=== PATIENT | female | born 1985 | race Caucasian/White ===

== ENCOUNTER → 2021-04-10 14:12 | Outpatient (CLI) | payer BC, SELFPAY ==
--- NOTE | ~2021-04-10 | XR_ITS ---
XR abdomen/kub 1V DATE: 04/10/2021 14:29 INDICATION: Bilateral kidney stones TECHNIQUE: AP projection, 2 views COMPARISON: None FINDINGS: Approximately 7.7 mm calcification overlying the lower pole of the right kidney. Approximat satnam 13.2 mm calcification overlying the mid left kidney. No visceromegaly is evident. The psoas shadows are intact. There is no evidence of bowel obstruction. Included skeletal structures are unremarkable other than osteoarthritis at the hip joints. IMPRESSION: Probable bilateral renal calcified calculi Reviewed, dictated and finalized at [facility]. Reviewed, dictated and finalized at location [facility].
== END ==
PROVIDERS: Visit Provider Urology
DX: N20.0 Calculus of kidney (principal)
CPT/HCPCS: 74018

== ENCOUNTER 2021-04-14 11:39 | Outpatient (CLI) | payer BC, SELFPAY ==
[2021-04-14 15:40] LABS: INR 0.9; Prothrombin Time 12.5 Seconds (11.1-14.7)
[2021-04-14 15:41] LABS: Partial Thromboplastin Time 29.7 SECONDS (22.3-36.8)
[2021-04-14 15:58] LABS: Beta HCG Quantitative < 2.39 mIU/ML
== END 2021-04-14 11:40 | disposition home or self-care (01) ==
PROVIDERS: PCP Family Medicine; Visit Provider Urology
DX: N20.0 Calculus of kidney (principal); Z01.818 Encounter for other preprocedural examination
CPT/HCPCS: 36415; 84702; 85610; 85730

== ENCOUNTER 2021-04-17 01:13 | Day surgery (SDC) | payer BC, SELFPAY ==
[2021-04-14 09:02] VITALS: BMI 44.6
[2021-04-17] VITALS (7 sets, daily range): BP systolic 93–123; BP diastolic 51–66; PULSE 67–87; RESP 16–21; TEMP 36.7–36.8; O2SAT 97–100
--- NOTE | ~2021-04-17 | XR_ITS ---
XR abdomen/kub 1V 04/17/2021 08:40 Indication: Renal stones Procedure: KUB Comparison: 04/10/2021 Findings: Bilateral renal stones, largest in the left kidney measuring 1.7 cm. Bowel gas pattern is n onobstructive. No acute osseous abnormality. Pelvic rings are intact. Moderate osteoarthritis of the hips. Impression: 1: Bilateral nephrolithiasis. Reviewed, dictated and finalized at location [facility]. Impression: 1: Bilateral nephrolithiasis.
--- NOTE | 2021-04-17 06:36 | WPDHPUPDATE1 ---
History and Physical Update Update Date/Time: 04/17/21 06:36 History and Physical has been reviewed, including an updated exam of the patient. There are NO changes in the patient's condition. Risks, benefits, and alternatives have been discussed and questions answered. Patient agrees to proceed with procedure.
--- NOTE | 2021-04-17 09:09 | P.PNAN_ITS ---
Anes - Initial Pre Proc Eval Procedure: Operation Date: 04/17/21 10:30 Proposed Procedures p Left Renal Extracorporeal Shock Wave Lithotripsy - James Gutierrez MD Date/Time: 04/17/21 09:09 Surgeon: James Gutierrez MD Pre Op Diagnosis: Left renal kidney stone Patient Data Age: 36 Gender: F Height: 1.7 m Weight: 129.27 kg Allergies Allergy/AdvReac Type Severity Reaction Status Date / Time No Known Allergies Allergy Unverified 04/14/21 09:03 Home Medications Medication Instructions Recorded Confirmed Type cholecalciferol (vitamin D3) 50 mcg PO DAILY 04/14/21 04/14/21 History ferrous sulfate 65 mg PO 04/14/21 History omeprazole [Prilosec] 20 mg PO DAILY 04/14/21 04/14/21 History Patient hx anesthesia problems: none Family hx anesthesia problems: none [facility] Past Medical History Medical History (Updated 04/17/21 @ 09:09 by Marv Walh MD) Morbid obesity Renal stones Surgical History Surgical History (Updated 04/17/21 @ 09:10 by Marv Wahl MD) History of gastric surgery Social History Social History Smoking status: Never smoker Alcohol intake: never Substance use: never Substance use type: does not use Living arrangements: with family Gender identity (if verbalized by the patient): Female Sexual Orientation (if Verbalized by the Patient): Straight or Heterosexual Spiritual care concerns: No Anes - Eval Final PreProcedure Day of Procedure 04/17/21 09:09 Patient weight: morbidly obese Heart: regular rate and rhythm Lungs: clear to auscultation Airway: Mallampati scale class II Neurological: alert and oriented Last oral intake: >/= 8 hours ASA classification: III Emergent: no Anesthetic plan: proceed Anesthesia type and monitoring: general LMA and standard monitoring Informed Consent: The patient's anesthetic plan and its attendant risks and benefits were discussed with the patient/family/POA. Questions were solicited and answers provided to the satisfaction of the patient/family/POA.
[2021-04-17] MEDS: LACTATED RINGERS 1,000 ML 30 ML IV CONT ×2 (09:37→11:30)
[2021-04-17] MEDS: ceFAZolin 3 GM/D5W 100 ML 100 ML IVPB (10:09)
--- NOTE | 2021-04-17 10:39 | W.PM.PROC2 ---
Procedure Note - Detailed Date of Procedure 04/17/21 Pre-op Diagnosis Left kidney stone Post-op Diagnosis same Procedure Performed Left ESWL Surgeon James Gutierrez MD Anesthesia general Description of Procedure The patient was brought to the operative suite where she was placed in the supine position on the Dornier lithotripsy table. The focal point of the lithotripter was placed at a 13mm left renal calculus. A total of 2500 shocks were delivered at a power setting of 4. There appeared to be good fragmentation of the stone. The patient tolerated the procedure well and was taken to the recovery room in good condition. Drains No Packing No Pathology none sent Complications No immediate complications Condition stable Disposition PACU
[2021-04-17] MEDS: ONDANSETRON INJ 4 MG/2 ML VIAL IV PUSH (11:17)
--- NOTE | 2021-04-17 11:32 | W.PM.PROC2 ---
Procedure Note - Detailed Date of Procedure 04/17/21 Pre-op Diagnosis Left kidney stone Post-op Diagnosis same Procedure Performed Left ESWL Surgeon James Gutierrez MD Anesthesia general Description of Procedure The patient was brought to the operative suite where she was placed in the supine position on the Dornier lithotripsy table. The focal point of the lithotripter was first placed at a 5-6mm left mid-pole calculus. A total of 1250 shocks were delivered at a power setting of 4 at that site. We then treated a similar size upper pole stone with an additional 1250 shocks. There appeared to be good fragmentation of the stones. The patient tolerated the procedure well and was taken to the recovery room in good condition. Drains No Packing No Pathology none sent Complications No immediate complications Condition stable Disposition PACU
== END 2021-04-17 12:20 | disposition home or self-care (01) ==
PROVIDERS: PCP Family Medicine; Visit Provider Urology
PROC: (CPT 50590; principal; 2021-04-17 10:30)
DX: N20.0 Calculus of kidney (principal); E66.01 Morbid (severe) obesity due to excess calories; Z68.42 Body mass index [BMI] 45.0-49.9, adult
CPT/HCPCS: 50590; 74018; J0690; J1100; J2250; J2405; J2704; J3010; J7120

== ENCOUNTER → 2021-04-30 16:11 | Outpatient (CLI) | payer BC, SELFPAY ==
--- NOTE | ~2021-04-30 | XR_ITS ---
EXAMINATION: XR abdomen/kub 1V DATE: 04/30/2021 16:52 INDICATION: Calculus of kidney. TECHNIQUE: A supine view of the abdomen on 2 radiographs was obtained. COMPARISON: Abdomen radiographs 04/10/2021, 04/17/2021 FINDINGS: There are no dilated loops of bowel. There is a 9 mm stone in right kidney lower pole. Ther e are phleboliths in right pelvis. IMPRESSION: 1. Right kidney stone. Reviewed, dictated and finalized at location [facility]. IMPRESSION: 1. Right kidney stone.
== END ==
PROVIDERS: Visit Provider Urology
DX: N20.0 Calculus of kidney (principal)
CPT/HCPCS: 74018

== ENCOUNTER 2022-04-07 17:40 | Emergency (ER) | payer BC, SELFPAY ==
[2022-04-07 17:42] VITALS: BP 156/58; PULSE 109; RESP 18; TEMP 37; O2SAT 100
--- NOTE | 2022-04-07 18:31 | ED.HA ---
HPI - Headache General Chief Complaint: Headache <Tova Perry APRN - Last Filed: 05/13/22 01:34> Stated Complaint: headache <Tova Perry APRN - Last Filed: 05/13/22 01:34> Time Seen by Provider: 04/07/22 18:23 <Tova Perry APRN - Last Filed: 05/13/22 01:34> Source: patient <Tova Perry APRN - Last Filed: 05/13/22 01:34> Mode of arrival: ambulatory <Tova Perry APRN - Last Filed: 05/13/22 01:34> Limitations: no limitations <Tova Perry APRN - Last Filed: 05/13/22 01:34> History of Present Illness HPI Narrative: 37-year-old female presents today with complaints of headache that started about 1 week ago. Patient states pain is intermittent in intensity. Pain is over the right frontal sinus and can radiate to the left. Patient recently seen at urgent care swabbed for COVID which was negative and told she had a URI. Symptoms started about 1 week ago. Patient states she had a sore throat, congestion, some dizziness, loss of taste. On Tuesday she was seen in urgent care and stated prior her COVID was negative. Patient has taken 2 COVID tests at home that were negative. Patient denies history of migraines. Patient denies sensitivity to light, nausea, vomiting. <Tova Perry APRN - Last Filed: 05/13/22 01:34> Related Data Home Medications: Home Medications Medication Instructions Recorded Confirmed cholecalciferol (vitamin D3) 50 50 mcg PO DAILY 04/14/21 04/14/21 mcg (2,000 unit) tablet ferrous sulfate 325 mg (65 mg 65 mg PO 04/14/21 iron) capsule,extended release omeprazole 20 mg capsule,delayed 20 mg PO DAILY 04/14/21 04/14/21 release <Tova Perry APRN - Last Filed: 05/13/22 01:34> Allergies/Adverse Reactions: Allergies Allergy/AdvReac Type Severity Reaction Status Date / Time NSAIDS (Non-Steroidal AdvReac Other Verified 04/07/22 17:56 Anti-Inflamma <Tova Perry APRN - Last Filed: 05/13/22 01:34> Review of Systems Review of Systems: CONSTITUTIONAL: Denies fever, chills, or sweats. EYES: Denies visual changes, redness, or discharge. ENT: Congestion. Denies rhinorrhea, sore throat, or otalgia. CARDIOVASCULAR: Denies chest pain, palpitations, or edema. RESPIRATORY: Denies cough or dyspnea. GASTROINTESTINAL: Denies abdominal pain, nausea, vomiting, or diarrhea. GENITOURINARY: Denies dysuria or hematuria. SKIN: Denies rash or itching. MUSCULOSKELETAL: Denies back pain, joint pain, or myalgia. NEUROLOGIC: Headache. Denies numbness, dizziness, or weakness. PSYCHIATRIC: Denies anxiety or depression. <Tova Perry APRN - Last Filed: 05/13/22 01:34> PMFSH Past Medical History Medical History: Medical History (Updated 04/08/22 @ 00:00 by Marilee Tee) Morbid obesity Renal stones <Tova Perry [employer]OCK [employer]KER - Last Filed: 05/13/22 01:34> Surgical History Surgical History: Surgical History (Updated 04/17/21 @ 09:10 by Marv Wahl MD) History of gastric surgery <Tova Perry APRN - Last Filed: 05/13/22 01:34> Social History Social History: Social History Smoking status: Never smoker Alcohol intake: never Substance use: never Substance use type: does not use Gender identity (if verbalized by the patient): Female Sexual Orientation (if Verbalized by the Patient): Straight or Heterosexual Spiritual care concerns: No <Tova Perry APRN - Last Filed: 05/13/22 01:34> Exam Narrative: GENERAL: Well-appearing, well-nourished, and in no acute distress. HEAD: Normocephalic, atraumatic. EYES: PERRLA and EOMI. ENT: Nares clear, no rhinorrhea or epistaxis. Mucous membranes moist. Oropharynx without tonsillar hypertrophy exudate or other lesions. Bilateral TMs pearly dee nonbulging. Right frontal sinus tenderness with palpation. NECK: Supple. No adenopathy or masses. No carotid bruits or JVD CHEST: Clear to auscultatio
[2022-04-07 18:43] LABS: Basophils Absolute Auto 0.1 K/mm3 (0.0-0.1); Basophils Percent Auto 0.6 % (0.2-1.2); Eosinophils Absolute Auto 0.1 K/mm3 (0-0.3); Eosinophils Percent Auto 0.8 % (0-4.4); Hematocrit 35.1 % (37.0-47.0); Hemoglobin 10.2 g/dL (12.0-15.0); Immature Granulocyte Absolute 0.04 K/mm3 (0.00-0.031); Immature Granulocyte Percent A 0.5 % (0-0.5); Immature Platelet Fraction Pct 5.7 % (0.9-11.2); Lymphocytes Absolute Auto 1.52 K/mm3 (0.9-3.2); Lymphocytes Percent Auto 19.5 % (18.3-44.2); Mean Corpuscular HGB Conc 29.1 g/dl (32-36); Mean Corpuscular Volume 72.2 fl (80-100); Mean Platelet Volume 11.5 fl (7.4-10.4); Monocytes Absolute Auto 0.4 K/mm3 (0.1-0.6); Monocytes Percent Auto 5.4 % (2.6-8.5); Neutrophils Absolute Auto 5.7 K/mm3 (1.3-6.7); Neutrophils Percent Auto 73.2 % (45.5-73.1); Platelet Count Result 294 k/mm3 (150-375); Red Blood Count 4.86 M/mm3 (4.2-5.4); Red Cell Distribution Width 17.6 % (11.5-14.5); White Blood Count 7.8 K/mm3 (4.5-10.0)
[2022-04-07] MEDS: SODIUM CHLORIDE 0.9% IV 1,000 ML 999 ML IV CONT (18:48)
[2022-04-07] MEDS: KETOROLAC 30 MG/ML VIAL (*BKC) IV PUSH (18:49)
[2022-04-07] MEDS: METOCLOPRAMIDE HCL INJ 10 MG/2 ML VIAL IV PUSH (18:49)
[2022-04-07] MEDS: diphenhydrAMINE HCl INJ 50 MG/ML VIAL 25 MG IV PUSH (18:49)
[2022-04-07 18:51] LABS: Alanine Aminotransferase 17 U/L (6-35); Albumin Level 4.2 g/dL (3.5-5.1); Alkaline Phosphatase 65 U/L (38-126); Anion Gap 6 mmol/L (8-16); Aspartate Amino Transferase 15 U/L (14-36); Bilirubin,Total 0.4 mg/dL (0.2-1.3); Blood Urea Nitrogen 10 mg/dL (7-17); Calcium 8.8 mg/dL (8.4-10.2); Carbon Dioxide 26 mmol/L (22-30); Chloride 105 mmol/L (98-107); Estimated CRCL calculation 133 ml/min; Estimated Glomerular Filt Rate > 60; Glucose 107 mg/dL (65-110); Potassium 3.9 mmol/L (3.4-5.0); Sodium 137 mmol/L (137-145)
[2022-04-07 19:24] LABS: SARS-CoV-2 RNA PCR Negative
[2022-04-07 19:30] VITALS: BP 106/57; PULSE 100; RESP 16; TEMP 37.7; O2SAT 100
[2022-04-07 19:31] LABS: Hypochromasia 1+ (NORMAL); Platelet Estimate Adequate (Adequate)
[2022-04-07 19:32] LABS: Anisocytosis 2+ (NORMAL)
[2022-04-07] MEDS: ACETAMINOPHEN 325 MG TABLET 650 MG PO (20:09)
[2022-04-07 20:12] VITALS: BP 106/51; PULSE 88; RESP 16; O2SAT 98
== END 2022-04-07 20:13 | disposition home or self-care (01) ==
PROVIDERS: Emergency Provider Nurse Practitioner Family
DX: B34.9 Viral infection, unspecified (principal); Z20.822 Contact with and (suspected) exposure to COVID-19
CPT/HCPCS: 36415; 80053; 85025; 85055; 96361; 96374; 96375; 99284; A9270; C9803; J1200; J1885; J2765; J7030; U0003; U0005

== ENCOUNTER 2023-08-28 17:41 | Emergency (ER) | payer BC, SELFPAY ==
--- NOTE | ~2023-08-28 | CT_ITS ---
EXAMINATION: CT abdomen pelvis wo con DATE: 08/28/2023 19:07 INDICATION: back pain, hematuria, hx stones TECHNIQUE: Computed tomography (CT) of the abdomen and pelvis was performed without intravenous contr ast. Automated exposure control and iterative reconstruction technique were employed. The dose-length product was 1653.68 mGy-cm. COMPARISON: None. FINDINGS: Lower thorax: Unremarkable Liver: Normal. Biliary/Gallbladder: Gallbladder is absent. No bile duct dilation. Pancreas: No mass or duct dilation. Spleen: Normal. Adrenals:No mass. Kidneys: No suspicious mass, obstructing stone, or hydronephrosis. 14 mm nonobstructing calculus in t he right renal pelvis. GI tract: Uncomplicated appearing small bowel anastomosis. Surgical changes at the GE junction. No sm all or large bowel dilation. Normal appendix. Diverticulosis without diverticulitis. Mesentery/Peritoneum: No ascites, mass, or free air. Retroperitoneum: No mass. Pelvis: Pelvic organs are within normal limits. Soft Tissues: Soft tissues and body wall unremarkable. Bones: No acute osseous finding. IMPRESSION: 14 mm nonobstructing stone in the right renal pelvis. No CT evidence of obstructive uropathy. No acute abdominopelvic process detected. Reviewed, dictated and finalized at location [facility]. OR [employer] ENG[employer] IMPRESSION: 14 mm nonobstructing stone in the right renal pelvis. No CT evidence of obstruc tive uropathy. No acute abdominopelvic process detected.
[2023-08-28 17:48] VITALS: BP 145/70; PULSE 84; RESP 15; TEMP 36.7; O2SAT 100
--- NOTE | 2023-08-28 18:20 | ED.FEMALEGU ---
HPI - Female Genitourinary General Chief complaint: Urogenital-Female Stated complaint: urinating blood, back pain Time Seen by Provider: 08/28/23 17:59 Source: patient Mode of arrival: ambulatory Limitations: no limitations History of Present Illness HPI Narrative: Patient is a 38-year-old female, with PMH of recurrent kidney stones, presents to ED with report of hematuria and low back pain. Patient reports she developed hematuria yesterday. It became worse today and notes her urine looked almost completely red. She began having some pain throughout her lower back, worse on the left side today. She does report intermittent discomfort in her left lower quadrant as well. Patient reports last stone was earlier this year. She sees Dr. Gutierrez. Denies dysuria, N/V, fevers, vaginal bleeding. Related Data Home Medications Medication Instructions Recorded Confirmed cholecalciferol (vitamin D3) 50 50 mcg PO DAILY 04/14/21 04/14/21 mcg (2,000 unit) tablet ferrous sulfate 325 mg (65 mg 65 mg PO 04/14/21 iron) capsule,extended release omeprazole 20 mg capsule,delayed 20 mg PO DAILY 04/14/21 04/14/21 release Allergies Allergy/AdvReac Type Severity Reaction Status Date / Time NSAIDS (Non-Steroidal AdvReac Other Verified 04/07/22 17:56 Anti-Inflamma Review of Systems Review of Systems: CONSTITUTIONAL: Denies fever, chills, or sweats. CARDIOVASCULAR: Denies chest pain. RESPIRATORY: Denies dyspnea. GASTROINTESTINAL: See HPI. GENITOURINARY: See HPI. SKIN: Denies rash or itching. MUSCULOSKELETAL: See HPI. All systems reviewed & are unremarkable except as noted in HPI and below PMFSH Past Medical History Medical History Morbid obesity Renal stones Surgical History Surgical History History of gastric surgery Social History Social History Smoking status: Never smoker Alcohol intake: never Substance use: never Substance use type: does not use Living arrangements: with family Gender identity (if verbalized by the patient): Female Sexual Orientation (if Verbalized by the Patient): Straight or Heterosexual Spiritual care concerns: No Exam Narrative: GENERAL: Well appearing, morbidly obese with BMI of 47.0, non-toxic, in no acute distress. HEAD: Normocephalic, atraumatic. NECK: Supple. No adenopathy, no masses. RESPIRATORY: Airway patent, respirations nonlabored. Clear to auscultation bilaterally, no rales, rhonchi, wheezing. CARDIOVASCULAR: Regular rate and rhythm without murmurs, rubs, or gallops. Peripheral pulses 2+ and equal bilaterally. ABDOMINAL: Soft, no significant tenderness throughout lower abdomen, nondistended, no hepatosplenomegaly. Normoactive BS. No significant CVA tenderness to percussion. MUSCULOSKELETAL: Moves all extremities. Strength/ROM intact without gross deformities. Mild TTP over L mid back. SKIN: Warm, dry, normal color. No rashes. NEURO: A&O X3. Speech clear. Cranial nerves II-XII grossly intact. Steady gait. No ataxic movements. PSYCHIATRIC: Appropriate mood and affect. Normal interaction. Course Vital Signs Vital signs: Vital Signs Temperature 98.0 F 08/28/23 17:48 Pulse Rate 84 08/28/23 17:48 Respiratory Rate 15 08/28/23 17:48 Blood Pressure 145/70 H 08/28/23 17:48 Pulse Oximetry 100 08/28/23 17:48 Temperature 98.0 F 08/28/23 17:48 Pulse Rate 79 08/28/23 20:03 Respiratory Rate 15 08/28/23 20:03 Blood Pressure 117/67 08/28/23 20:03 Pulse Oximetry 100 08/28/23 20:03 MDM - Female Genitourinary MDM Narrative Medical decision making narrative: Patient presented to ED with hematuria, left lower back pain, history of kidney stones. Stable upon arrival. In no acute distress. No significant pain. She did not want anything for pa
[2023-08-28 18:32] LABS: Appearance Urine Cloudy (Clear); Bacteria Urine None Seen /hpf; Bilirubin Urine Negative (Negative); Blood Urine 3+ (Negative); Color Urine Yellow (Yellow); Glucose Urine UA Negative (Negative); Ketones Urine Negative (Negative); Leukocyte Esterase Ur Trace LEU/UL (Negative); Nitrate Urine Negative (Negative); Non Pathogenic Casts 0-2; Protein Urine 1+ mg/dL (Negative); RBC Urine >100 /hpf (0-2); Squamous Epithelial Cell Urine Few /hpf (Few); WBC Urine 0-5 /hpf; pH Urine 5.5 (5.0-9.0)
[2023-08-28 18:55] LABS: Add Urine Microscopic? YES
[2023-08-28 19:07] LABS: Basophils Percent Auto 0.5 % (0.2-1.2); Eosinophils Absolute Auto 0.1 K/mm3 (0-0.3); Eosinophils Percent Auto 1.1 % (0-4.4); Hematocrit 39.1 % (37.0-47.0); Hemoglobin 12.4 g/dL (12.0-15.0); Immature Granulocyte Absolute 0.02 K/mm3 (0.00-0.031); Immature Granulocyte Percent A 0.2 % (0-0.5); Lymphocytes Absolute Auto 1.31 K/mm3 (0.9-3.2); Lymphocytes Percent Auto 15.6 % (18.3-44.2); Mean Corpuscular HGB Conc 31.7 g/dl (32-36); Mean Corpuscular Hemoglobin 27.4 pg (26-34); Mean Corpuscular Volume 86.5 fl (80-100); Mean Platelet Volume 11.1 fl (7.4-10.4); Monocytes Absolute Auto 0.4 K/mm3 (0.1-0.6); Monocytes Percent Auto 5.2 % (2.6-8.5); Neutrophils Absolute Auto 6.5 K/mm3 (1.3-6.7); Neutrophils Percent Auto 77.4 % (45.5-73.1); Platelet Count Result 232 k/mm3 (150-375); Red Blood Count 4.52 M/mm3 (4.2-5.4); White Blood Count 8.4 K/mm3 (4.5-10.0)
[2023-08-28 19:17] LABS: Potassium 3.7 mmol/L (3.4-5.0)
[2023-08-28 19:25] LABS: Alanine Aminotransferase 20 U/L (6-35); Albumin Level 3.9 g/dL (3.5-5.1); Alkaline Phosphatase 63 U/L (38-126); Anion Gap 6 mmol/L (8-16); Aspartate Amino Transferase 20 U/L (14-36); Bilirubin,Total 0.5 mg/dL (0.2-1.3); Blood Urea Nitrogen 13 mg/dL (7-17); Calcium 9.1 mg/dL (8.4-10.2); Carbon Dioxide 25 mmol/L (22-30); Chloride 109 mmol/L (98-107); Estimated CRCL calculation 153 ml/min; Estimated Glomerular Filt Rate > 60; Glucose 99 mg/dL (65-110); Sodium 140 mmol/L (137-145)
[2023-08-28] MEDS: SODIUM CHLORIDE 0.9% IV 1,000 ML 999 ML IV CONT (19:28)
[2023-08-28 20:03] VITALS: BP 117/67; PULSE 79; RESP 15; O2SAT 100
[2023-08-28 21:55] VITALS: BP 105/77; PULSE 83; RESP 16; O2SAT 98
== END 2023-08-28 21:55 | disposition home or self-care (01) ==
PROVIDERS: Student in an Organized Health Care Education/Training Program; Emergency Provider Physician Assistant; PCP Family Medicine
DX: N20.0 Calculus of kidney (principal); R31.0 Gross hematuria; Z87.442 Personal history of urinary calculi; E66.01 Morbid (severe) obesity due to excess calories; Z68.42 Body mass index [BMI] 45.0-49.9, adult; Z98.84 Bariatric surgery status
CPT/HCPCS: 36415; 74176; 80053; 81001; 81025; 85025; 87077; 87086; 87088; 96360; 96361; 99284; J7030

== ENCOUNTER 2023-10-08 01:38 | Observation (INO) | payer BC, SELFPAY ==
[2023-10-08] VITALS (9 sets, daily range): BP systolic 114–141; BP diastolic 52–86; PULSE 65–95; RESP 18–22; TEMP 36–36.6; O2SAT 98–100; BMI 50.2
--- NOTE | ~2023-10-08 | XR_ITS ---
XR stent kub - surgery DATE: 10/08/2023 08:37 INDICATION: Right stent placement TECHNIQUE: 25.8 seconds fluoroscopy time 19.61 mGy COMPARISON: 08/28/2023 CT abdomen pelvis. FINDINGS: No stricture or filling defect of the right ureter is detected. There is placement of a right internal urinary stent, proximal pigtail overlying the right renal pelv is, the distal pigtail overlying the right base of the urinary bladder IMPRESSION: Right internal urinary right internal urinary stent placement Reviewed, dictated and finalized at location A. NE FIREMAN
--- NOTE | 2023-10-08 01:46 | ADMGEN ---
This patient, Samanta Braga, was admitted to Medical Room 349-01. Patient/family oriented to hospital policies and general routines including ID bracelet, bed and alarms, visiting hours, pain management, procedures, bathroom and other care routines, personal items, smoking policy, room service/diet, and visiting hours. Information on how to activate the Rapid Response Team has been discussed. Patient/Family are encouraged to report perceived risks to care and to ask questions if they do not understand what they are told or what they should do.
[2023-10-08] MEDS: HYDROmorphone HCL INJ (*CRX) 1 MG/ML SYR IV PUSH (02:24)
[2023-10-08] MEDS: SODIUM CHLORIDE 0.9% IV 1,000 ML 100 ML IV CONT (02:25)
[2023-10-08] MEDS: ONDANSETRON INJ 4 MG/2 ML VIAL IV PUSH ×3 (02:29→12:08)
--- NOTE | 2023-10-08 07:40 | P.PNAN_ITS ---
Anes - Eval Pre Procedure Procedure: Operation Date: 10/08/23 08:00 Proposed Procedures p Cystoscopy, Right Ureteral Stent Placement - Piero Foster MD Date/Time: 10/08/23 07:40 Surgeon: Cristian Preop Diagnosis: renal stone Pre Op Diagnosis: obstructing kidney stone Patient Data Age: 38 Gender: F Height: 1.7 m Weight: 145.5 kg Last Vital Signs Temp 97.0 F L 10/08/23 02:48 Pulse 73 10/08/23 02:48 Resp 20 10/08/23 02:48 BP 141/59 H 10/08/23 02:48 Pulse Ox 98 10/08/23 02:48 O2 Del Method Room Air 10/08/23 02:13 Allergies Allergy/AdvReac Type Severity Reaction Status Date / Time NSAIDS (Non-Steroidal AdvReac Other Verified 04/07/22 17:56 Anti-Inflamma Home Medications Medication Instructions Recorded Confirmed Type omeprazole 20 mg capsule,delayed 20 mg PO DAILY PRN Gastric Reflux 04/14/21 10/08/23 History release : patient denies (h/o btl) Patient hx anesthesia problems: post op nausea/vomiting Family hx anesthesia problems: none Results Review: All pre-operative results and documents have been reviewed as part of the pre- operative evaluation. [facility] Past Medical History Medical History (Updated 10/08/23 @ 07:38 by Liv Garcia CRNA) Anemia Asthma Chronic GERD Morbid obesity PONV (postoperative nausea and vomiting) Renal stones Surgical History Surgical History (Updated 10/08/23 @ 07:36 by Liv Garcia CRNA) H/O sinus surgery H/O tubal ligation History of gastric surgery Hx of cholecystectomy Previous section Family History Family History Father Heart attack Social History Social History Smoking status: Never smoker Alcohol intake: never Substance use: never Substance use type: does not use Do You Feel Safe in your Home?: Yes Lack of Transportation: No Lack of Food: Never True Current Housing: I Have Housing Concerned About Future Housing: No Difficulty Paying Gas/Electric Bills: No Difficulty Paying for Meds: No Currently Unemployed: No Education: High School Diploma/GED Difficulty w/ Childcare or Family Care: No Living arrangements: with family Gender identity (if verbalized by the patient): Female Sexual Orientation (if Verbalized by the Patient): Straight or Heterosexual Spiritual care concerns: No Exam Day of Procedure 10/08/23 07:40 Patient weight: morbidly obese Airway: Mallampati scale class II
[2023-10-08] MEDS: ceFAZolin 3 GM/D5W 100 ML 100 ML IVPB (08:14)
[2023-10-08] MEDS: LACTATED RINGERS 1,000 ML 30 ML IV CONT (08:15)
--- NOTE | 2023-10-08 08:16 | WPDANESEPPF ---
Anes - Initial Pre Proc Eval Procedure: Operation Date: 10/08/23 08:00 Proposed Procedures p Cystoscopy, Right Ureteral Stent Placement - Piero Foster MD Date/Time: 10/08/23 08:16 Surgeon: Marycarmen Roberts DO Pre Op Diagnosis: obstructing kidney stone Patient Data Age: 38 Gender: F Height: 1.7 m Weight: 145.5 kg Last Vital Signs Temp 36.1 C L 10/08/23 06:00 Pulse 80 10/08/23 06:00 Resp 20 10/08/23 06:00 BP 118/52 L 10/08/23 06:00 Pulse Ox 98 10/08/23 06:00 O2 Del Method Room Air 10/08/23 02:13 Allergies Allergy/AdvReac Type Severity Reaction Status Date / Time NSAIDS (Non-Steroidal AdvReac Other Verified 04/07/22 17:56 Anti-Inflamma Home Medications Medication Instructions Recorded Confirmed Type omeprazole 20 mg capsule,delayed 20 mg PO DAILY PRN Gastric Reflux 04/14/21 10/08/23 History release : patient denies (h/o btl) Patient hx anesthesia problems: post op nausea/vomiting Family hx anesthesia problems: none Results Review: All pre-operative results and documents have been reviewed as part of the pre-operative evaluation. [facility] Past Medical History Medical History Anemia Asthma Chronic GERD Morbid obesity PONV (postoperative nausea and vomiting) Renal stones Surgical History Surgical History H/O sinus surgery H/O tubal ligation History of gastric surgery Hx of cholecystectomy Previous section Family History Family History Father Heart attack Social History Social History Smoking status: Never smoker Alcohol intake: never Substance use: never Substance use type: does not use Do You Feel Safe in your Home?: Yes Lack of Transportation: No Lack of Food: Never True Current Housing: I Have Housing Concerned About Future Housing: No Difficulty Paying Gas/Electric Bills: No Difficulty Paying for Meds: No Currently Unemployed: No Education: High School Diploma/GED Difficulty w/ Childcare or Family Care: No Living arrangements: with family Gender identity (if verbalized by the patient): Female Sexual Orientation (if Verbalized by the Patient): Straight or Heterosexual Spiritual care concerns: No Anes - Eval Final PreProcedure Day of Procedure 10/08/23 08:16 Patient weight: morbidly obese Heart: regular rate and rhythm Lungs: clear to auscultation Airway: Mallampati scale class II Neurological: alert and oriented Last oral intake: >/= 8 hours ASA classification: III Emergent: no Anesthetic plan: proceed Anesthesia type and monitoring: general LMA and standard monitoring Results Review: All pre-operative results and documents have been reviewed as part of the pre-operative evaluation. Informed Consent: The patient's anesthetic plan and its attendant risks and benefits were discussed with the patient/family/POA. Questions were solicited and answers provided to the satisfaction of the patient/family/POA.
--- NOTE | 2023-10-08 08:17 | WPDURCON ---
Assessment and Plan Assessment and plan (1) Renal calculus, right: Code(s): N20.0 - Calculus of kidney Status: Acute Assessment and Plan: large stone in the right renal pelvis--pain control reason for admission likely intermittent obstruction with minimal hydronephrosis plan for right ureteral stent (2) Renal colic on right side: Code(s): N23 - Unspecified renal colic Status: Acute Assessment and Plan: stent and pain control Urology Consult Note HPI Date Seen: 10/08/23 Requesting Physician: Marycarmen Roberts DO Primary Care Provider: Nabeel RodriguezMD Consult Narrative Narrative: Samanta Braga is a 38 year old female with right flank pain and right 1cm stone. No fevers, admitted for pain control. Review of Systems Review of Systems: past ESWL Constitutional: Comments: normal affect PMFSH Past Medical History Medical History (Updated 10/08/23 @ 08:24 by Piero Foster MD) Anemia Asthma Chronic GERD Morbid obesity PONV (postoperative nausea and vomiting) Renal calculus, right Renal stones Surgical History Surgical History H/O sinus surgery H/O tubal ligation History of gastric surgery Hx of cholecystectomy Previous section Family History Family History Father Heart attack Social History Social History Smoking status: Never smoker Alcohol intake: never Substance use: never Substance use type: does not use Do You Feel Safe in your Home?: Yes Lack of Transportation: No Lack of Food: Never True Current Housing: I Have Housing Concerned About Future Housing: No Difficulty Paying Gas/Electric Bills: No Difficulty Paying for Meds: No Currently Unemployed: No Education: High School Diploma/GED Difficulty w/ Childcare or Family Care: No Living arrangements: with family Gender identity (if verbalized by the patient): Female Sexual Orientation (if Verbalized by the Patient): Straight or Heterosexual Spiritual care concerns: No Meds Home Medications and Allergies Home Medications Medication Instructions Recorded Confirmed Type omeprazole 20 mg capsule,delayed 20 mg PO DAILY PRN Gastric Reflux 04/14/21 10/08/23 History release Allergies Allergy/AdvReac Type Severity Reaction Status Date / Time NSAIDS (Non-Steroidal AdvReac Other Verified 04/07/22 17:56 Anti-Inflamma Vital Signs Vital Signs - 24 hr 10/08/23 02:13 10/08/23 02:48 10/08/23 06:00 Temperature 36.1 C L 36.1 C L Pulse Rate 73 80 Respiratory Rate 20 20 Blood Pressure 141/59 H 118/52 L Pulse Oximetry 98 98 Oxygen Delivery Room Air Exam Narrative: right sided pain--CVA Const: General: cooperative, healthy appearing, alert and awake HENMT: Head: normal to inspection Eyes: General: appearance normal, both eyes and all related structures Chest: Chest palpation & inspection: normal inspection of the chest Resp: Effort & Inspection: normal respiratory effort : General: Yes bimanual renal exam normal bilaterally Back/Spine/Pelvis: Back: CVA tenderness (right)
--- NOTE | 2023-10-08 08:39 | W.PM.PROC2 ---
Procedure Note - Detailed Date of Procedure 10/08/23 Pre-op Diagnosis obstructing kidney stone right renal pelvis Post-op Diagnosis Same Procedure Performed cystoscopy and right ureteral stent Surgeon Piero Foster MD Guidance Adviser none Anesthesia General Indications right renal colic Description of Procedure Patient consented for procedure and was brought back to the operating room. A LMA general anesthesia was achieved. She was positioned lithotomy. Her pelvis and vagina were dressed and draped in normal sterile fashion. Cystoscopy was completed and a right retrograde study was completed illustrating a normal ureter with a stone at the right UPJ with mild hydronephrosis. A 4.8 Turkmen by variable length stent was placed. A good curl was visualized past and around the stone with a good curl in the bladder. The bladder was normal on cystoscopy. The bladder was emptied. She was transferred to the recovery area in stable condition. Implants 4.8 Turkmen double J stent on right Estimated Blood Loss 0 Pathology None sent Complications No immediate complications Condition Stable Disposition PACU
[2023-10-08] MEDS: LIDOCAINE HCL 2% GEL UROJET 10 ML PKG MUCOUS MEM (08:44)
--- NOTE | 2023-10-08 11:39 | PM.SD2 ---
Same Day Admit/Disch: HPI History of Present Illness Chief complaint: obstructing kidney stone Narrative: Samanta Braga is a 38 year old female with a history of kidney stones that was transferred to [facility] from [place] due to a 10 mm right ureteral stone. Patient stated that she does have history of a lithotripsy. Patient arrived to [facility] and urology was consulted. Patient underwent cystoscopy and right ureteral stent placement on 10/08/2023. After procedure patients pain was much better controlled. She tolerated a diet after her procedure. She was cleared by Urology to discharge. Recommended follow-up in their office. [facility] Past Medical History Medical History Anemia Asthma Chronic GERD Morbid obesity PONV (postoperative nausea and vomiting) Renal calculus, right Renal stones Surgical History Surgical History H/O sinus surgery H/O tubal ligation History of gastric surgery Hx of cholecystectomy Previous section Family History Family History Father Heart attack Social History Social History Smoking status: Never smoker Alcohol intake: never Substance use: never Substance use type: does not use Do You Feel Safe in your Home?: Yes Lack of Transportation: No Lack of Food: Never True Current Housing: I Have Housing Concerned About Future Housing: No Difficulty Paying Gas/Electric Bills: No Difficulty Paying for Meds: No Currently Unemployed: No Education: High School Diploma/GED Difficulty w/ Childcare or Family Care: No Living arrangements: with family Gender identity (if verbalized by the patient): Female Sexual Orientation (if Verbalized by the Patient): Straight or Heterosexual Spiritual care concerns: No Same Day Admit/Disch: Med Pre-admit Medications Home Medications Medication Instructions Recorded Confirmed Type omeprazole 20 mg capsule,delayed 20 mg PO DAILY PRN Gastric Reflux 04/14/21 10/08/23 History release Exam Narrative: GENERAL: Comfortable, no acute distress HENMT: moist mucous membranes EYES: EOM intact b/l NECK: no lymphadenopathy RESPIRATORY: clear to auscultation CARDIO: RRR GI: soft, nontender, bowel sounds present SKIN: no rashes EXTREMITIES: no edema, redness or tenderness DS: Summary Hospital Course Hospital Course: Samanta Braga is a 38 year old female with a history of kidney stones that was transferred to [facility] from [place] due to a 10 mm right ureteral stone. Patient stated that she does have history of a lithotripsy. Patient arrived to [facility] and urology was consulted. Patient underwent cystoscopy and right ureteral stent placement on 10/08/2023. After procedure patients pain was much better controlled. She tolerated a diet after her procedure. She was cleared by Urology to discharge. Recommended follow-up in their office. Time Spent with Patient Time attestation: Total time spent providing and/or coordinating discharge services: DS: Admitting Diagnosis Discharge Date 10/11/23 Admitting Diagnosis kidney stone DS: Discharge Diagnosis Discharge Diagnosis (1) Renal colic on right side: Code(s): N23 - Unspecified renal colic Status: Acute Discharge Plan Discharge Attending physician on discharge: Lex Louise Consulting providers: Piero Foster Discharging Clinician: Umu Velasquez Patient Disposition: Home, Self-Care Activity: as tolerated Diet: regular Discharge Instructions: Discharge instructions: Return to the emergency department if: Nausea vomiting, fever, difficulty urinating, blood in the urine, severe pain May use Tylenol, ibuprofen or Advil for increased pain.
== END 2023-10-08 14:48 | disposition home or self-care (01) ==
PROVIDERS: Urology; Admitting Provider Internal Medicine; PCP Family Medicine; Visit Provider Internal Medicine
PROC: (CPT 52352; principal; 2023-10-08 08:00)
DX: N13.2 Hydronephrosis with renal and ureteral calculous obstruction (principal); N23 Unspecified renal colic; K21.9 Gastro-esophageal reflux disease without esophagitis; D64.9 Anemia, unspecified; J45.909 Unspecified asthma, uncomplicated; E66.01 Morbid (severe) obesity due to excess calories; Z68.43 Body mass index [BMI] 50.0-59.9, adult; Z98.84 Bariatric surgery status
CPT/HCPCS: 52332; 96374; C1758; C2617; G0378; J0690; J1170; J2250; J2405; J3010; J7030; J7120; Q9966

== ENCOUNTER 2023-11-03 16:48 | Outpatient (CLI) | payer BC, SELFPAY ==
[2023-11-03 17:04] LABS: Hematocrit 36.1 % (35.0-49.0); Hemoglobin 11.4 g/dL (12.0-15.0)
[2023-11-03 17:19] LABS: INR 0.9; Partial Thromboplastin Time 28.7 SEC (23.90-30.70); Prothrombin Time 10.3 Seconds (9.50-12.10)
== END 2023-11-03 16:49 | disposition home or self-care (01) ==
PROVIDERS: Urology; PCP Family Medicine; Visit Provider Anesthesiology
DX: Z01.818 Encounter for other preprocedural examination (principal); D64.9 Anemia, unspecified; N20.0 Calculus of kidney
CPT/HCPCS: 36415; 85014; 85018; 85610; 85730; 87077; 87086; 87088

== ENCOUNTER 2023-11-11 01:50 | Day surgery (SDC) | payer BC, SELFPAY ==
[2023-11-01 11:35] VITALS: BMI 48.6
--- NOTE | 2023-11-01 11:41 | PC.NURSE ---
Report to the Outpatient Waiting Room, entrance under the green pavilion located off [facility], at time 0600 on date 11/11/23. Planned Procedure Time: 0730. Time changes happen often and if your time is changed the preop area will call you the afternoon before. - You and your visitor will be asked to self-screen and do not enter if you have any COVID symptoms. - A mask is optional within the hospital at this time. Patients may have clear liquids (water, carbonated beverages, clear teas, apple juice) until 3 hours prior to surgery with a maximum of 20 ounces. - No food from midnight until time of surgery Take the following medications with a SIP of water the morning of surgery: PAIN PILL IF NEEDED DO NOT STOP ANY OF YOUR OTHER PRESCRIPTION MEDICATIONS PRIOR TO SURGERY ?EXCEPT THE FOLLOWING Medications to discontinue per physician: N/A Date to take last dose: N/A Please no make-up, nail georgian, hairspray, perfume, deodorant, or body powder the day of surgery. No jewelry (including any body piercings) or valuables the day of surgery, leave them at home. Please take a shower or bath the night before, or the morning of, surgery with an antibacterial soap. Wear comfortable, loose fitting clothing. - Jewelry must be removed prior to entering the operating room. Rings and piercings that are not removed may be cut off. - The hospital will not accept responsibility for valuables. - Please leave all valuables, including medications, at home the day of surgery. If you are going home after surgery, a licensed route driver must drive you home. - NO public transportation without another adult if you receive anesthesia. - We recommend that an adult stay with you for 24 hours following discharge. - We also recommend that you do not drive, make important decision, drink alcoholic beverages, or take any drugs that were not prescribed by your health care provider for at least 24 hours after your discharge time. Follow any additional instructions given to you from your surgeon. If you or anyone in your household have experienced Covid symptoms in the past week, please notify your surgeon or the nurse liaison at the phone number below for possible testing. Telephone instructions given to PT - BUCKY MULLEN and asked if any additional questions and then verbalized understanding. Patient advised to call surgeon office or pre surgery nurse liaison [phone] if any additional questions.
--- NOTE | 2023-11-03 07:19 | P.HP_ITS ---
History of Present Illness History of Present Illness Consent: Risks, benefits, and alternatives have been discussed and questions answered. Patient agrees to proceed with procedure. Chief complaint: sharon kidney stones Narrative: Samanta Braga is a 38 year old female who presented on September 2019 for with a 1 cm right renal pelvic stone. Ureteral stent was placed and she now presents for definitive right ESWL. She is aware the risk including, but not limited to, adverse cardiopulmonary events, hematuria, perinephric hematoma and need for additional procedures. Review of Systems Cardiovascular: Cardiovascular: Denies chest pain, Denies lightheadedness, Denies palpitations and Denies dyspnea Respiratory: Respiratory: Denies dyspnea Gastrointestinal: Gastrointestinal: Denies diarrhea, Denies nausea and Denies vomiting Genitourinary: Genitourinary: Denies hematuria and Denies dysuria Endocrine: Endocrine: Denies palpitations PMFSH Past Medical History Medical History Anemia Asthma Chronic GERD Morbid obesity PONV (postoperative nausea and vomiting) Renal calculus, right Renal stones Surgical History Surgical History H/O sinus surgery H/O tubal ligation History of gastric surgery Hx of cholecystectomy Previous section Family History Family History Father Heart attack Social History Social History Smoking status: Never smoker Alcohol intake: never Substance use: never Substance use type: does not use Do You Feel Safe in your Home?: Yes Lack of Transportation: No Lack of Food: Never True Current Housing: I Have Housing Concerned About Future Housing: No Difficulty Paying Gas/Electric Bills: No Difficulty Paying for Meds: No Currently Unemployed: No Education: High School Diploma/GED Difficulty w/ Childcare or Family Care: No Living arrangements: with family Gender identity (if verbalized by the patient): Female Sexual Orientation (if Verbalized by the Patient): Straight or Heterosexual Spiritual care concerns: No Meds Home Medications and Allergies Home Medications Medication Instructions Recorded Confirmed Type omeprazole 20 mg capsule,delayed 20 mg PO DAILY PRN Gastric Reflux 04/14/21 11/01/23 History release acetaminophen 300 mg-codeine 30 mg 1 tablet PO Q6H PRN Pain 11/01/23 11/01/23 History tablet Allergies Allergy/AdvReac Type Severity Reaction Status Date / Time NSAIDS (Non-Steroidal AdvReac Other Verified 11/01/23 11:34 Anti-Inflamma Exam Const: General: no acute distress Resp: Effort & Inspection: normal respiratory effort GI: Inspection: non-distended GI Palp: No abdominal tenderness and No Guarding due to palpation present (GI) Auscultation: normal bowel sounds Assessment and Plan Assessment and plan (1) Renal calculus, right: Code(s): N20.0 - Calculus of kidney Status: Acute Assessment and Plan: * Right ESWL
[2023-11-11] VITALS (8 sets, daily range): BP systolic 112–139; BP diastolic 44–77; PULSE 64–84; RESP 18–22; TEMP 36.2–36.5; O2SAT 98–100
--- NOTE | ~2023-11-11 | XR_ITS ---
Supine and upright views of the abdomen Clinical history: Lithotripsy COMPARISON: 04/30/2021 Findings: Bowel gas pattern is nonspecific. No evidence for obstruction or free air. Right ureteral s tent in place. Right renal stone measures 15 mm in diameter. Osseous structures are intact. Impression: 15 mm right renal stone with right ureteral stent in place. Reviewed, dictated and finalized at [facility]. NCIAL MANAGEMENT CONSULTANT Impression: 15 mm right renal stone with right ureteral stent in place.
--- NOTE | 2023-11-11 06:10 | WPDHPUPDATE1 ---
History and Physical Update Update Date/Time: 11/11/23 06:10 History and Physical has been reviewed, including an updated exam of the patient. There are NO changes in the patient's condition. Risks, benefits, and alternatives have been discussed and questions answered. Patient agrees to proceed with procedure.
[2023-11-11] MEDS: LACTATED RINGERS 1,000 ML 30 ML IV CONT (06:35)
--- NOTE | 2023-11-11 07:16 | WPDANESEPPF ---
Anes - Initial Pre Proc Eval Procedure: Operation Date: 11/11/23 07:30 Proposed Procedures p Right Extracorporeal Shock Wave Lithotripsy - James Gutierrez MD s Cystoscopy with Possible Stent Removal - James Gutierrez MD Date/Time: 11/11/23 07:16 Surgeon: James Gutierrez MD Pre Op Diagnosis: sharon kidney stones Patient Data Age: 38 Gender: F Height: 1.7 m Weight: 144 kg Last Vital Signs Temp 36.5 C 11/11/23 06:30 Pulse 80 11/11/23 06:30 Resp 20 11/11/23 06:30 BP 133/70 11/11/23 06:30 Pulse Ox 99 11/11/23 06:30 O2 Del Method Room Air 11/11/23 06:30 Allergies Allergy/AdvReac Type Severity Reaction Status Date / Time NSAIDS (Non-Steroidal AdvReac r/t Verified 11/11/23 06:28 Anti-Inflamma gastric surgery Home Medications Medication Instructions Recorded Confirmed Type omeprazole 20 mg capsule,delayed 20 mg PO DAILY PRN Gastric Reflux 04/14/21 11/11/23 History release acetaminophen 300 mg-codeine 30 mg 1 tablet PO Q6H PRN Pain 11/01/23 11/11/23 History tablet Patient hx anesthesia problems: post op nausea/vomiting Family hx anesthesia problems: none Results Review: All pre-operative results and documents have been reviewed as part of the pre-operative evaluation. [facility] Past Medical History Medical History Anemia Asthma Chronic GERD Morbid obesity PONV (postoperative nausea and vomiting) Renal calculus, right Renal stones Surgical History Surgical History H/O sinus surgery H/O tubal ligation History of gastric surgery Hx of cholecystectomy Previous section Family History Family History Father Heart attack Social History Social History Smoking status: Never smoker Alcohol intake: never Substance use: never Substance use type: does not use Do You Feel Safe in your Home?: Yes Lack of Transportation: No Lack of Food: Never True Current Housing: I Have Housing Concerned About Future Housing: No Difficulty Paying Gas/Electric Bills: No Difficulty Paying for Meds: No Currently Unemployed: No Education: High School Diploma/GED Difficulty w/ Childcare or Family Care: No Living arrangements: with family Gender identity (if verbalized by the patient): Female Sexual Orientation (if Verbalized by the Patient): Straight or Heterosexual Spiritual care concerns: No Anes - Eval Final PreProcedure Day of Procedure 11/11/23 07:16 Patient weight: morbidly obese Heart: regular rate and rhythm Lungs: clear to auscultation Airway: Mallampati scale class II Neurological: alert and oriented Last oral intake: >/= 8 hours ASA classification: III Emergent: no Anesthetic plan: proceed Anesthesia type and monitoring: general LMA and standard monitoring Results Review: All pre-operative results and documents have been reviewed as part of the pre-operative evaluation. Informed Consent: The patient's anesthetic plan and its attendant risks and benefits were discussed with the patient/family/POA. Questions were solicited and answers provided to the satisfaction of the patient/family/POA.
[2023-11-11] MEDS: ceFAZolin 3 GM/D5W 100 ML 100 ML IVPB (07:29)
--- NOTE | 2023-11-11 07:50 | P.OP_ITS ---
Procedure Note - Detailed Date of Procedure 11/11/23 Pre-op Diagnosis Right kidney stone Post-op Diagnosis Same Procedure Performed Cystoscopy, right ureteral stent removal, right ESWL Surgeon James Gutierrez MD Anesthesia General Description of Procedure The patient was brought to the operative suite where she was placed in the frog- legged position on the Dornier lithotripter table. Flexible cystoscopy was undertaken with a 16F flexible cystoscopy. Her urethra and bladder neck were endoscopically normal. The bladder mucosa was normal and there was a single, orthotopic ureteral orifice bilaterally. The tip of the indwelling stent is grasped and the stent was removed with ease. The patient was then repositioned in the supine position and the focal point of the lithotriptor was placed at a 6-7mm left mid-ureteral calculus. A total of 2500 shocks were delivered at a power setting of 7. There appeared to be good fragmentation of the stone. The patient tolerated the procedure well and was taken to the recovery room in good condition. Drains No Packing No Pathology None sent Complications No immediate complications Condition Stable Disposition PACU
[2023-11-11] MEDS: fentaNYL CITRATE INJ (*CRX) 100 MCG/2 ML VIAL 25 MCG IV PUSH ×6 (08:22→08:52)
[2023-11-11] MEDS: KETOROLAC 30 MG/ML VIAL (*BKC) IV PUSH (08:45)
[2023-11-11] MEDS: ONDANSETRON INJ 4 MG/2 ML VIAL IV PUSH (09:20)
[2023-11-11] MEDS: oxyCODONE HCL (*CRX) 5 MG TAB IR PO (09:22)
[2023-11-11] MEDS: SCOPOLAMINE 1 MG PATCH 1 PATCH TRANSDERM (10:06)
== END 2023-11-11 10:13 | disposition home or self-care (01) ==
PROVIDERS: PCP Family Medicine; Visit Provider Urology
PROC: (CPT 50590; principal; 2023-11-11 07:30)
PROC: (CPT 52310; 2023-11-11 07:30)
DX: N20.0 Calculus of kidney (principal); K21.9 Gastro-esophageal reflux disease without esophagitis; E66.01 Morbid (severe) obesity due to excess calories; Z68.42 Body mass index [BMI] 45.0-49.9, adult
CPT/HCPCS: 50590; 52310; 74018; A9270; J0690; J1100; J1885; J2250; J2405; J2704; J3010; J7120

== ENCOUNTER 2023-11-25 12:39 | Outpatient (CLI) | payer BC, SELFPAY ==
--- NOTE | ~2023-11-25 | XR_ITS ---
EXAMINATION: XR abdomen/kub 1V INDICATION: Right-sided stone TECHNIQUE: Supine views of the abdomen were obtained on 2 radiographs. COMPARISON: 11/11/2023 FINDINGS: The right internal ureteral stent has been removed. There is a 15 mm stone of the right kid mariam lower pole. A phlebolith is noted in the right pelvis. No additional urolithiasis is identified. The bowel gas pattern is normal. The visualized lung bases are clear. There is moderate osteoarthriti s of the hips. IMPRESSION: 1. Stable 15 mm stone of the right kidney. Interval right internal ureteral stent removal. Reviewed, dictated and finalized at location B. LING MACHINE OPERATOR IMPRESSION: 1. Stable 15 mm stone of the right kidney. Interval right internal ureteral yanique nt removal.
== END 2023-11-25 12:40 | disposition home or self-care (01) ==
LOC: ANHIMG 12:40
PROVIDERS: PCP Family Medicine; Visit Provider Urology
DX: N20.0 Calculus of kidney (principal)
CPT/HCPCS: 74018

== ENCOUNTER 2023-12-02 19:46 | Emergency (ER) | payer BC, SELFPAY ==
[2023-12-02 19:49] VITALS: BP 149/73; PULSE 100; RESP 18; TEMP 36.5; O2SAT 98
--- NOTE | 2023-12-02 19:55 | ED.GENADULT ---
HPI - General Adult General Chief complaint: Extremity Problem,Nontraumatic Stated complaint: knee pain Time Seen by Provider: 12/02/23 19:51 History of Present Illness HPI narrative: Samanta is a 38F with a PMH of nephrolithiasis, GERD, and asthma that presented to the ED with painful and tenderness just medial and superior from her right knee. It radiates down the back of her leg. There was no fall or trauma. There has been no prolonged sitting, road trips, flights or immobility. Related Data Home Medications Medication Instructions Recorded Confirmed omeprazole 20 mg capsule,delayed 20 mg PO DAILY PRN Gastric Reflux 04/14/21 12/02/23 release acetaminophen 300 mg-codeine 30 mg 1 tablet PO Q6H PRN Pain 11/01/23 12/02/23 tablet Allergies Allergy/AdvReac Type Severity Reaction Status Date / Time NSAIDS (Non-Steroidal AdvReac r/t Verified 12/02/23 19:52 Anti-Inflamma gastric surgery Review of Systems Review of Systems: All systems reviewed & are unremarkable except as noted in HPI and below PMFSH Past Medical History Medical History Anemia Asthma Chronic GERD Morbid obesity PONV (postoperative nausea and vomiting) Renal calculus, right Renal stones Surgical History Surgical History H/O sinus surgery H/O tubal ligation History of gastric surgery Hx of cholecystectomy Previous section Family History Family History Father Heart attack Social History Social History Smoking status: Never smoker Alcohol intake: never Substance use: never Substance use type: does not use Do You Feel Safe in your Home?: Yes Lack of Transportation: No Lack of Food: Never True Current Housing: I Have Housing Concerned About Future Housing: No Difficulty Paying Gas/Electric Bills: No Difficulty Paying for Meds: No Currently Unemployed: No Education: High School Diploma/GED Difficulty w/ Childcare or Family Care: No Living arrangements: with family Gender identity (if verbalized by the patient): Female Sexual Orientation (if Verbalized by the Patient): Straight or Heterosexual Spiritual care concerns: No Exam Const: General: cooperative, healthy appearing, comfortable, no acute distress, well developed, alert, awake and Physically active Orientation/consciousness: oriented to person, oriented to place and oriented to time HENMT: Head: normal to inspection, normocephalic and atraumatic Ears: hearing grossly normal bilaterally and external ears normal Face/Nose/Sinus: Normal external nose present Eyes: General: appearance normal, both eyes and all related structures Periorbital: periorbital findings normal Sclera: sclerae normal Pupils: Equal, round and reactive pupils present Neck: Neck: normal visual inspection Chest: Chest palpation & inspection: normal inspection of the chest Resp: Effort & Inspection: normal respiratory effort, able to speak in complete sentences and no respiratory distress Cardio: Jugular venous distension: no JVD Skin: General skin exam: normal color and no rashes or lesions noted Neuro: General: oriented to person, oriented to place and oriented to time Cranial nerves: Yes Equal, round and reactive pupils present Extrem: General: normal to inspection Other: varicose veins just superior to the right knee on the medial side that were TTP. The leg had no erythema, or swelling. Course Vital Signs Vital signs: Vital Signs Temperature 97.7 F 12/02/23 19:49 Pulse Rate 100 12/02/23 19:49 Respiratory Rate 18 12/02/23 19:49 Blood Pressure 149/73 H 12/02/23 19:49 Pulse Oximetry 98 12/02/23 19:49 Oxygen Delivery Room Air 12/02/23 19:49 Temperature 97.7 F 12/02/23 19:49 Pulse Rat
[2023-12-02 20:19] LABS: D Dimer 0.19 mg/L (0.19-0.50)
== END 2023-12-02 20:30 | disposition home or self-care (01) ==
LOC: CHSED 20:28
PROVIDERS: Emergency Provider Family Medicine; PCP Family Medicine
DX: I83.811 Varicose veins of right lower extremity with pain (principal)
CPT/HCPCS: 36415; 85380; 99283

== ENCOUNTER 2023-12-05 15:14 | Outpatient (CLI) | payer BC, SELFPAY ==
--- NOTE | ~2023-12-05 | XR_ITS ---
EXAM: XR abdomen/kub 1V DATE: 12/05/2023 15:31 HISTORY: BILATERAL KIDNEY STONE . COMPARISON: 11/25/2023. FINDINGS: Clear lung bases. Normal bowel gas pattern. Enlarged liver. 13 mm right lower pole calcifi cation. Lumbar degenerative disc disease. Bilateral hip osteoarthritis. Pelvic enthesopathy. Pelvic p hlebolith. IMPRESSION: Hepatomegaly. Stable right nephrolithiasis. Reviewed, dictated and finalized at location K.
== END 2023-12-05 15:15 | disposition home or self-care (01) ==
LOC: ANHIMG 15:16
PROVIDERS: PCP Family Medicine; Visit Provider Urology
DX: N20.0 Calculus of kidney (principal); R16.1 Splenomegaly, not elsewhere classified
CPT/HCPCS: 74018

== ENCOUNTER 2023-12-24 10:32 | Outpatient (CLI) | payer BC, SELFPAY ==
--- NOTE | ~2023-12-24 | XR_ITS ---
XR abdomen/kub 1V DATE: 12/24/2023 10:46 INDICATION: Bilateral kidney stones TECHNIQUE: AP views COMPARISON: None FINDINGS: Of approximately 1 cm calcified calculus overlying the lower pole of the right kidney. The psoas shadows are intact. No visceromegaly. No evidence of bowel obstruction. IMPRESSION: Right renal calcified calculus Reviewed, dictated and finalized at Location A. Reviewed, dictated and finalized at location A.
== END 2023-12-24 10:33 | disposition home or self-care (01) ==
LOC: ANHIMG 10:33
PROVIDERS: PCP Family Medicine; Visit Provider Urology
DX: N20.0 Calculus of kidney (principal)
CPT/HCPCS: 74018

== ENCOUNTER 2024-05-19 09:59 | Outpatient (CLI) | payer BC, SELFPAY ==
--- NOTE | ~2024-05-19 | XR_ITS ---
XR abdomen/kub 1V 05/19/2024 10:15 Indication: Kidney stones Procedure: KUB Comparison: Comparison to multiple prior studies sequentially, with oldest reviewed study dated 11/11. Findings: There is a 1.4 cm stone lower pole of the right kidney. Bowel gas pattern nonobstructive. N o pelvic calcifications. No acute osseous abnormality. Mild osteoarthritis of the hips. Impression: 1: Right nephrolithiasis. Reviewed, dictated and finalized at location B. Impression: 1: Right nephrolithiasis.
== END 2024-05-19 10:00 | disposition home or self-care (01) ==
LOC: ANHIMG 10:01
PROVIDERS: PCP Family Medicine; Visit Provider Urology
DX: N20.0 Calculus of kidney (principal)
CPT/HCPCS: 74018

== ENCOUNTER 2024-07-12 02:38 | Day surgery (SDC) | payer BC, SELFPAY ==
--- NOTE | 2024-06-27 07:39 | P.HP_ITS ---
History of Present Illness History of Present Illness Consent: Risks, benefits, and alternatives have been discussed and questions answered. Patient agrees to proceed with procedure. Chief complaint: Lg Renal Stone Narrative: Samanta Braga is a 39 year old female with a history of recurrent urolithiasis. In November 2023 she underwent ESWL for a 10 mm stone in her right kidney it did not fracture well. The stone is now grown to 14 mm and, after discussion of options, she has elected for endoscopic stone manipulation. She is aware of the risks including, but not limited to, need for additional procedures, hematuria stent placement with stent irritation. Review of Systems Review of Systems: All systems reviewed & are unremarkable except as noted in HPI and below PMFSH Past Medical History Medical History Anemia Asthma Chronic GERD Morbid obesity PONV (postoperative nausea and vomiting) Renal calculus, right Renal stones Surgical History Surgical History H/O sinus surgery H/O tubal ligation History of gastric surgery Hx of cholecystectomy Previous section Family History Family History Father Heart attack Social History Social History Smoking status: Never smoker Alcohol intake: never Substance use: never Substance use type: does not use Do You Feel Safe in your Home?: Yes Lack of Transportation: No Lack of Food: Never True Current Housing: I Have Housing Concerned About Future Housing: No Difficulty Paying Gas/Electric Bills: No Difficulty Paying for Meds: No Currently Unemployed: No Education: High School Diploma/GED Difficulty w/ Childcare or Family Care: No Living arrangements: with family Gender identity (if verbalized by the patient): Female Sexual Orientation (if Verbalized by the Patient): Straight or Heterosexual Spiritual care concerns: No Meds Home Medications and Allergies Home Medications Medication Instructions Recorded Confirmed Type omeprazole 20 mg capsule,delayed 20 mg PO DAILY PRN Gastric Reflux 04/14/21 12/02/23 History release acetaminophen 300 mg-codeine 30 mg 1 tablet PO Q6H PRN Pain 11/01/23 12/02/23 History tablet hydrocodone 5 mg-acetaminophen 325 1 - 2 tablet PO Q6H PRN pain #20 11/11/23 12/02/23 Rx mg tablet tabs Allergies Allergy/AdvReac Type Severity Reaction Status Date / Time NSAIDS (Non-Steroidal AdvReac r/t Verified 12/02/23 19:52 Anti-Inflamma gastric surgery Exam Const: General: no acute distress Resp: Effort & Inspection: normal respiratory effort GI: Inspection: non-distended GI Palp: No abdominal tenderness and No Guarding due to palpation present (GI) Auscultation: normal bowel sounds Assessment and Plan Assessment and plan (1) Renal calculus, right: Code(s): N20.0 - Calculus of kidney Status: Acute Assessment and Plan: * Cystoscopy, right ureteroscopy with laser lithotripsy, stone extraction, possible retrograde pyelography and stent placement
--- NOTE | 2024-07-03 10:05 | PC.NURSE ---
Report to the Outpatient Waiting Room, entrance under the green pavilion located off [facility], at time ___1000____ on date __[id number]____. Planned Procedure Time: __1200 .? Time changes happen often and if your time is changed the preop area will call you the afternoon before. - You and your visitor will be asked to self-screen and do not enter if you have any COVID symptoms. Please call surgeon if you need to reschedule. - A mask is optional within the hospital at this time. Patients may have clear liquids (water, carbonated beverages, clear teas, apple juice) until 3 hours prior to surgery with a maximum of 20 ounces. (stop at 9:00 am) - No food from midnight until time of surgery and no smoking -n/a Take only the following medications with a SIP of water on the morning of surgery: n/a DO NOT STOP ANY OF YOUR OTHER PRESCRIPTION MEDICATIONS PRIOR TO SURGERY EXCEPT THE FOLLOWING Medications to discontinue per physician Do not take zepbound on 07-04-2024, do not take your vitamin D on 07-03-2924, do not take the prilosec the morning of surgery. Please no make-up, nail salvadorean, hairspray, perfume, deodorant, or body powder the day of surgery.? No jewelry (including any body piercings) or valuables the day of surgery, leave them at home.? Please take a shower or bath the night before, or the morning of, surgery with an antibacterial soap.? Wear comfortable, loose fitting clothing.? - Jewelry must be removed prior to entering the operating room.? Rings and piercings that are not removed may be cut off. - The hospital will not accept responsibility for valuables.? - Please leave all valuables, including medications, at home the day of surgery. If you are going home after surgery, a licensed stud driver must drive you home.? - NO public transportation without another adult if you receive anesthesia. - We recommend that an adult stay with you for 24 hours following discharge. - We also recommend that you do not drive, make important decision, drink alcoholic beverages, or take any drugs that were not prescribed by your health care provider for at least 24 hours after your discharge time. For Pediatric surgeries, we recommend two adults accompany the child home. Follow any additional instructions given to you from your surgeon. Telephone instructions given to ___Samanta (patient) and asked if any additional questions and then verbalized understanding. Patient advised to call surgeon office or pre surgery nurse liaison [phone] if any additional questions.
[2024-07-03 10:18] VITALS: BMI 47.7
[2024-07-12] VITALS (9 sets, daily range): BP systolic 126–145; BP diastolic 65–90; PULSE 70–90; RESP 14–26; TEMP 36.3–36.6; O2SAT 97–100; BMI 48.2
--- NOTE | ~2024-07-12 | XR_ITS ---
EXAMINATION: XR retrograde pyelo w/stent RT DATE: 07/12/2024 13:48 INDICATION: Right internal ureteral stent placement TECHNIQUE: Fluoroscopic images from a right internal ureteral stent placement are submitted for richar maradiaga 38 seconds of fluoroscopy time. FINDINGS: There is a right double-J internal ureteral stent projecting in expected position, with proximal [place] loop at the level of the renal pelvis and distal loop in the pelvis within the bladder lumen. IMPRESSION: 1. Right internal ureteral stent placement. Please refer to real-time procedural findings for real ls. Reviewed, dictated and finalized at location B. IMPRESSION: 1. Right internal ureteral stent placement. Please refer to real-time procedu ral findings for details.
--- NOTE | 2024-07-12 06:20 | WPDHPUPDATE1 ---
History and Physical Update Update Date/Time: 07/12/24 06:20 History and Physical has been reviewed, including an updated exam of the patient. There are NO changes in the patient's condition. Risks, benefits, and alternatives have been discussed and questions answered. Patient agrees to proceed with procedure.
[2024-07-12] MEDS: LACTATED RINGERS 1,000 ML 30 ML IV CONT (10:40)
[2024-07-12 10:49] LABS: Hematocrit 37.9 % (37.0-47.0); Hemoglobin 11.6 g/dL (12.0-15.0)
[2024-07-12 11:24] LABS: BEDSIDEPREGUCG Negative (Negative)
--- NOTE | 2024-07-12 11:29 | P.PNAN_ITS ---
Anes - Initial Pre Proc Eval Procedure: Operation Date: 07/12/24 12:00 Proposed Procedures p Cystoscopy, Right Ureteroscopy, Holmium Laser Lithotripsy, Right Stone Extraction, Possible Right Retrograde Pyelogram, Right Stent Placement - James Gutierrez MD Date/Time: 07/12/24 11:29 Surgeon: James Gutierrez MD Pre Op Diagnosis: Lg Renal Stone Patient Data Age: 39 Gender: F Height: 1.7 m Weight: 139.5 kg Last Vital Signs Temp 36.6 C 07/12/24 09:55 Pulse 87 07/12/24 09:55 Resp 14 07/12/24 09:55 BP 140/65 07/12/24 09:55 Pulse Ox 98 07/12/24 09:55 O2 Del Method Room Air 07/12/24 09:55 Allergies Allergy/AdvReac Type Severity Reaction Status Date / Time NSAIDS (Non-Steroidal AdvReac r/t Verified 07/12/24 11:19 Anti-Inflamma gastric surgery Home Medications Medication Instructions Recorded Confirmed Type omeprazole 20 mg capsule,delayed 20 mg PO DAILY PRN Gastric Reflux 04/14/21 07/03/24 History release cholecalciferol (vitamin D3) 1,250 50,000 unit WEEKLY 07/03/24 07/12/24 History mcg (50,000 unit) capsule tirzepatide (weight loss) 5 mg/0.5 5 mg subcut WEEKLY 07/03/24 07/12/24 History mL subcutaneous pen injector (Zepbound) Laboratory Tests 07/12/24 07/12/24 10:05 10:45 Hgb 11.6 L g/dL (12.0-15.0) Hct 37.9 % (37.0-47.0) POC Urine HCG, Qual Negative (Negative) Patient hx anesthesia problems: none Family hx anesthesia problems: none Results Review: All pre-operative results and documents have been reviewed as part of the pre- operative evaluation. [facility] Past Medical History Medical History Anemia Asthma Chronic GERD Morbid obesity PONV (postoperative nausea and vomiting) Renal calculus, right Renal stones Surgical History Surgical History H/O sinus surgery H/O tubal ligation History of gastric surgery Hx of cholecystectomy Previous section Family History Family History Father Heart attack Social History Social History Smoking status: Never smoker Second hand tobacco smoke exposure: No Alcohol intake: never Substance use: never Substance use type: does not use Do You Feel Safe in your Home?: Yes Lack of Transportation: No Lack of Food: Never True Current Housing: I Have Housing Concerned About Future Housing: No Difficulty Paying Gas/Electric Bills: No Difficulty Paying for Meds: No Currently Unemployed: No Education: High School Diploma/GED Difficulty w/ Childcare or Family Care: No Living arrangements: with family Gender identity (if verbalized by the patient): Female Sexual Orientation (if Verbalized by the Patient): Straight or Heterosexual Spiritual care concerns: No Anes - Eval Final PreProcedure Day of Procedure 07/12/24 11:29 Patient weight: super morbidly obese Heart: regular rate and rhythm Lungs: clear to auscultation Airway: Mallampati scale class II Neurological: alert and oriented Last oral intake: >/= 8 hours ASA classification: IV Emergent: no Anesthetic plan: proceed Anesthesia type and monitoring: general LMA and standard monitoring Results Review: All pre-operative results and documents have been reviewed as part of the pre- operative evaluation. Informed Consent: The patient's anesthetic plan and its attendant risks and benefits were discussed with the patient/family/POA. Questions were solicited and answers provided to the satisfaction of the patient/family/POA.
[2024-07-12] MEDS: SCOPOLAMINE 1 MG PATCH 1 PATCH TRANSDERM (12:10)
[2024-07-12] MEDS: ceFAZolin 3 GM/D5W 100 ML 100 ML IVPB (12:55)
[2024-07-12] MEDS: LIDOCAINE HCL 2% GEL UROJET 10 ML PKG MUCOUS MEM (13:27)
--- NOTE | 2024-07-12 14:14 | P.OP_ITS ---
Procedure Note - Detailed Date of Procedure 07/12/24 Pre-op Diagnosis Lg Renal Stone Post-op Diagnosis Same Procedure Performed Cystoscopy, right ureteroscopy with laser lithotripsy, stone extraction and stent placement Surgeon James Gutierrez MD Anesthesia General Description of Procedure patient brought to the operative suite where she was prepped and draped in routine sterile fashion while in dorsal lithotomy position after the uneventful induction of a general LMA anesthetic. Cystoscopy was undertaken with a 19 F rigid cystoscope. Bladder neck and urethra endoscopically normal. She has a single orthotopic ureteral orifice with clear efflux bilaterally. A 0.035 in glidewire was advanced into the right renal pelvis and the distal ureter was dilated with an 8 F 10 F dilator. The safety wire was placed and a 11 F/ 13 F ureteral access sheath was positioned in the right mid ureter. Flexible u reteroscopy was undertaken with a 6.5 F digital flexible ureteral scope. There were stone is in a lower medial pole but I was able to access it there dusted into tiny pieces with a 200 micron Coleman laser fiber. Any pieces estimated larger than 2 mm were extracted with a disposable stone basket. The scope was removed and a 1.8 F variable length stent was appropriately position. The patient tolerated the procedure well. Drains No Packing No Pathology None sent Complications No immediate complications Condition Stable Disposition PACU
[2024-07-12] MEDS: ONDANSETRON INJ 4 MG/2 ML VIAL IV PUSH (14:20)
[2024-07-12] MEDS: oxyCODONE HCL (*CRX) 5 MG TAB IR PO (14:48)
[2024-07-12] MEDS: diphenhydrAMINE HCl INJ 50 MG/ML VIAL 25 MG IV PUSH (15:10)
== END 2024-07-12 15:54 | disposition home or self-care (01) ==
PROVIDERS: Anesthesiology; PCP Family Medicine; Visit Provider Urology
PROC: (CPT 52352; principal; 2024-07-12 12:00)
DX: N20.0 Calculus of kidney (principal); K21.9 Gastro-esophageal reflux disease without esophagitis; E66.01 Morbid (severe) obesity due to excess calories; Z68.42 Body mass index [BMI] 45.0-49.9, adult
CPT/HCPCS: 52356; 36415; 74420; 82365; 85014; 85018; 88300; A9270; C1769; C1894; C2617; J0690; J1100; J1200; J2250; J2405; J2704; J3010; J7120; Q9966